=== PATIENT | male | born 1995 | race Caucasian/White ===

== ENCOUNTER 2017-04-19 12:41 | Emergency (ER) | payer OTHER ==
[~2017-04-19] VITALS: Ht 180.3 cm; Wt 87.3 kg
[2017-04-19 13:01] VITALS: Ht 180.3 cm; Wt 87.3 kg
[2017-04-19] MEDS ORDERED: ACETAMINOPHEN 325 MG TAB PO STA (13:28)
[2017-04-19 14:27] LABS: BASO % 0.1 %; BASO ABS # 0.01 K/uL (0-0.2); COMPLETE YES; EOS % 0.1 %; HEMATOCRIT 43.8 % (42-52); IG% 0.2 %; LYMPH % 4.2 %; LYMPH ABS # 0.57 K/uL (1.2-3.4); MEAN CELL VOLUME 88.1 fL (80-100); MEAN CORPUSCULAR HGB CONC 35.2 g/dl (32-36); MEAN PLATELET VOLUME 9.2 fL (7.4-10.4); MONO % 5.1 %; NEUT % 90.3 %; PLATELET COUNT 191 K/uL (130-400); RED BLOOD COUNT 4.97 M/uL (4.7-6.1); WHITE BLOOD COUNT 13.59 K/uL (4.8-10.8)
[2017-04-19 14:47] LABS: BUN/CREATININE RATIO 13.8 (10-20); CALCIUM 9.6 mg/dl (8.5-10.1); CREATININE 0.88 mg/dl (0.60-1.40); POTASSIUM 3.6 mmol/L (3.5-5.1)
[2017-04-19 15:19] LABS: LYME DISEASE AB IGG NEG (NEG); LYME DISEASE AB IGM NEG (NEG)
[2017-04-19 16:00] VITALS: BP 117/64; PULSE 86; TEMP 36.7; O2SAT 97
--- NOTE | 2017-04-19 18:58 | EMERGENCY ROOM VISIT NOTE ---
History Report prepared by Mecheibreg: Ren De Guzman Under the Supervision of: Dr. Jaycob Rubio M.D. First contact with patient: 13:07 Chief Complaint: ILLNESS Stated Complaint: SORE THROAT, FEVER History of Present Illness The patient is a 21 year old male who presents to the Emergency Room with complaints of persistent generalized illness beginning 12 hours ago. His symptoms include chills, subjective fevers, muscle aches, joint pain, sinus congestion, and sore throat. He believes that the muscle aches and joint pain are from playing basketball yesterday. He states he hasn't played in a long time. The patient denies any rashes or cough. He denies any known tick bites, and has not been in the [place] recently. Source of History: patient Onset: 12 hours ago Position: other (generalized) Quality: other (illness) Timing: other (persistent) Associated Symptoms: + fevers (subjective), + chills, + sorethroat, No cough , No rash Note: Additional symptoms: sinus congestion, body aches and joint pain. Review of Systems See HPI for pertinent positives & negatives. A total of 10 systems reviewed and were otherwise negative. Past Medical & Surgical Medical Problems: (1) Migraine (2) No Known Active Medical Problems Family History No pertinent family history stated. Social History Smoking Status: Never Smoker Occupation Status: [employer] student Current/Historical Medications No Active Prescriptions or Reported Meds Allergies Coded Allergies: No Known Allergies (Unverified , 04/19/17) Physical Exam Vital Signs Date Time Temp Pulse Resp B/P (MAP) Pulse Ox O2 Delivery O2 Flow Rate FiO2 04/19/17 16:00 36.7 86 91 117/64 97 04/19/17 14:58 36.7 86 91 117/64 97 Room Air 04/19/17 13:01 36.4 99 18 127/69 94 Room Air Physical Exam Constitutional: Vital signs reviewed. Eyes: Pupils are equal round reactive to light. Conjunctiva are noninjected. ENT: Pharynx with diffuse erythema without exudate. No cervical anterior lymphadenopathy. Mucous membranes are moist. Neck supple without meningeal signs. Respiratory: Clear to auscultation bilaterally. Breath sounds are equal bilaterally. Cardiovascular: Regular rate and rhythm. No rubs or gallops. GI: Soft, nondistended and nontender. Bowel sounds are present. No organomegaly. Musculoskeletal: No peripheral edema. No joint tenderness. Integumentary: No cyanosis. Neurological: The patient is awake and alert. No focal deficits. Psychiatric: Normal affect. Medical Decision & Procedures Laboratory Results 04/19/17 14:05 Red Blood Count 4.97, Mean Corpuscular Volume 88.1, Mean Corpuscular Hemoglobin 31.0, Mean Corpuscular Hemoglobin Concent 35.2, Mean Platelet Volume 9.2, Neutrophils (%) (Auto) 90.3, Lymphocytes (%) (Auto) 4.2, Monocytes (%) (Auto) 5.1, Eosinophils (%) (Auto) 0.1, Basophils (%) (Auto) 0.1, Neutrophils # (Auto) 12.28, Lymphocytes # (Auto) 0.57, Monocytes # (Auto) 0.69, Eosinophils # (Auto) 0.01, Basophils # (Auto) 0.01 04/19/17 14:05 Test 04/19/17 14:05 White Blood Count 13.59 K/uL (4.8-10.8) Red Blood Count 4.97 M/uL (4.7-6.1) Hemoglobin 15.4 g/dL (14.0-18.0) Hematocrit 43.8 % (42-52) Mean Corpuscular Volume 88.1 fL (80-100) Mean Corpuscular Hemoglobin 31.0 pg (25-34) Mean Corpuscular Hemoglobin Concent 35.2 g/dl (32-36) Platelet Count 191 K/uL (130-400) Mean Platelet Volume 9.2 fL (7.4-10.4) Neutrophils (%) (Auto) 90.3 % Lymphocytes (%) (Auto) 4.2 % Monocytes (%) (Auto) 5.1 % Eosinophils (%) (Auto) 0.1 % Basophils (%) (Auto) 0.1 % Neutrophils # (Auto) 12.28 K/uL (1.4-6.5) Lymphocytes # (Auto) 0.57 K/uL (1.2-3.4) Monocytes # (Auto) 0.69 K/uL (0.11-0.59) Eosinophils # (Auto) 0.01 K/uL (0-0.5) Basophils # (Auto) 0.01 K/uL (0-0.2) RDW Standard Deviation 39.1 fL (36.4-46.3) RDW Coefficient of Variation 12.2 % (11.5-14.5) Immature Granulocyte % (Auto) 0.2 % Immature Granulocyte # (Auto) 0.03 K/uL (0.00-0.02) Anion Gap 10.0 mmol/L (3-11) Est Creatinine Clear Calc Drug Dose 139.0 ml/min Estimated GFR () 140.3 Estimated GFR (Non- 121.1 BUN/Creatinine Ratio 13.8 (10-20) Calcium Level 9.6 mg/dl (8.5-10.1) Total Bilirubin 0.7 mg/dl (0.2-1) Direct Bilirubin 0.2 mg/dl (0-0.2) Aspartate Amino Transf (AST/SGOT) 20 U/L (15-37) Alanine Aminotransferase (ALT/SGPT) 57 U/L (12-78) Alkaline Phosphatase 57 U/L (45-117) Total Protein 7.7 gm/dl (6.4-8.2) Albumin 4.3 gm/dl (3.4-5.0) Lyme Disease IgG Antibody NEG (NEG) Lyme Disease IgM Antibody NEG (NEG) Monoscreen NEG (NEG) Laboratory results as reviewed by me. Medications Administered Medications (Trade) Dose Ordered Sig/Jessie Route Start Time Stop Time Status Last Admin Dose Admin Acetaminophen (Tylenol Tab) 650 mg NOW STAT PO 04/19/17 13:28 04/19/17 13:30 DC 04/19/17 13:40 650 MG ED Course 1308: The patient was evaluated in room B4B. A complete history and physical exam was performed. 1326: The patient's strep test was negative. I discussed getting additional laboratory studies with him and he verbalized agreement. 1328: Ordered Tylenol Tab 650 mg PO. 1523: Upon reevaluation, the patient appeared to have improvement of his symptoms. I discussed tonight's findings with him. He verbalized agreement of the treatment plan. The patient was discharged home. Medical Decision This is a 21-year-old male who presents with generalized illness. Differential diagnosis includes strep pharyngitis, URI, infectious mononucleosis, Lyme disease, influenza. I did perform a limited focused review of portions of the patient's old chart on the electronic medical record. The patient has had no recent pertinent visits to this hospital. I did evaluate the patient as noted above. The patient is presenting with a generalized illness for the past 12 hours. He does complain of a sore throat and body aches. I did obtain a rapid strep test which was negative. A throat culture is pending. IV access was established. I did treat the patient with Tylenol. I did order and review the patient's blood work as noted in the electronic medical record. His white blood cell count is slightly elevated which is a nonspecific finding. Lyme testing and Monospot are both negative. I did discuss the test results with the patient. I did recommend supportive care and follow up with [facility]. He was discharged in good condition. Medication Reconcilliation Current Medication List: was personally reviewed by me Blood Pressure Screening Patient's blood pressure: Normal blood pressure Blood pressure disposition: Did not require urgent referral Impression Primary Impression: Pharyngitis Scribe Attestation The scribe's documentation has been prepared under my direct and personally reviewed by me in its entirety. I confirm that the note above accurately reflects all work, treatment, procedures, and medical decision making performed by me. Departure Information Dispostion Home / Self-Care Prescriptions No Active Prescriptions or Reported Meds Referrals [facility] (PCP) Forms HOME CARE DOCUMENTATION FORM, IMPORTANT VISIT INFORMATION, WORK / SCHOOL INSTRUCTIONS Patient Instructions ED Pharyngitis Viral Report Pending, My [facility] Additional Instructions You have been examined and treated today on an emergency basis only. This is not a substitute for, or an effort to provide, complete comprehensive medical care. It is impossible to recognize and treat all injuries or illnesses in a single emergency department visit. It is therefore important that you follow up closely with [facility]. Call as soon as possible for an appointment. Return for worsening symptoms or if you develop rash, high fever, vomiting, or any other concerning symptoms. Problem Qualifiers Primary Impression: Pharyngitis Pharyngitis/tonsillitis etiology: unspecified etiology Qualified Codes: J02.9 - Acute pharyngitis, unspecified
== END 2017-04-19 15:45 | disposition home or self-care (01) ==
LOC: C.EDB 12:42
DX: J02.9 Acute pharyngitis, unspecified (principal)

== ENCOUNTER 2017-04-26 01:55 | Emergency (ER) | payer OTHER ==
[~2017-04-26] VITALS: Ht 182.9 cm; Wt 85.3 kg
[2017-04-26 02:04] VITALS: BP 124/94; PULSE 79; TEMP 36.5; Ht 182.9 cm; Wt 85.3 kg
[2017-04-26] MEDS ORDERED: BENZ1LOZ24 PO (02:23)
[2017-04-26] MEDS ORDERED: AZITHROMYCIN 250 MG TAB PO STA (02:40)
--- NOTE | 2017-04-26 02:41 | EMERGENCY ROOM VISIT NOTE ---
History Report prepared by Epifanio: Yohana Flaherty Under the Supervision of: Dr. Vinay Preciado M.D. First contact with patient: 02:07 Chief Complaint: COUGH Stated Complaint: COUGH AT NIGHT,ESPECIALLY AFTER 12AM History of Present Illness The patient is a 21 year old male who presents to the Emergency Room with complaints of persistent cough starting 4 days ago. During the day, he seldom coughs. His cough seems to worsen at night. He also has coughing when he lies down to take a nap during the day. He has been having diaphoresis with lying down. He was seen in the ED 1 week ago with a subjective fever, headache, and sore throat. He no longer has any fever or headache. He does have a sore throat. He denies any sick contacts. He is concerned for TB. He has gotten the vaccine. He does not have any know contacts with TB. Source of History: patient Onset: 4 days ago Position: other (global) Quality: other (cough) Timing: other (persistent) Modifying Factors (Worsening): other (lying down, nighttime) Associated Symptoms: + diaphoresis, + sorethroat, No fevers, No headache Review of Systems See HPI for pertinent positives & negatives. A total of 10 systems reviewed and were otherwise negative. Past Medical & Surgical Medical Problems: (1) Migraine (2) No Known Active Medical Problems Family History No pertinent family history stated. Social History Smoking Status: Never Smoker Occupation Status: [employer] student Current/Historical Medications Scheduled Azithromycin (Zithromax Z-Sher), 1 PKT PO UD Prednisone (Prednisone), 50 MG PO DAILY Scheduled PRN Benzocaine-Menthol (Mouth-Thro (Cepacol Sore Throat), 1 MICHAEL PO DIRECTED PRN for Cough Allergies Coded Allergies: No Known Allergies (Unverified , 04/26/17) Physical Exam Vital Signs Date Time Temp Pulse Resp B/P (MAP) Pulse Ox O2 Delivery O2 Flow Rate FiO2 04/26/17 02:52 98 04/26/17 02:04 36.5 79 18 124/94 97 Room Air Physical Exam GENERAL: Patient is well appearing and in no acute distress. Junky cough. HEENT: No acute trauma, normocephalic atraumatic, mucous membranes moist, no nasal congestion, no scleral icterus, mild pharyngeal erythema. NECK: No stridor, no adenopathy, no meningismus, trachea is midline. LUNGS: No dyspnea. Clear to auscultation and equal bilaterally. No wheeze, no rhonchi. HEART: Regular rate and rhythm. No murmurs, rubs, gallops appreciated. ABDOMEN: Soft, nontender, bowel sounds positive, no masses appreciated, no peritonitis. BACK: No midline tenderness, no CVA tenderness EXTREMITIES: Normal motion all extremities, no cyanosis, no edema. NEUROLOGIC: Alert and oriented, no acute motor or sensory deficits, no focal weakness, cranial nerves grossly intact. SKIN: No rash, no jaundice, no diaphoresis. Medical Decision & Procedures ER Provider Diagnostic Interpretation: X ray results are stated below per my interpretation: Chest: 2 view: No infiltrate, no effusion, no pneumothorax, no cavitary lesions. Medications Administered Medications (Trade) Dose Ordered Sig/Jessie Route Start Time Stop Time Status Last Admin Dose Admin Azithromycin (Zithromax Tab) 500 mg NOW STAT PO 04/26/17 02:40 04/26/17 02:41 DC 04/26/17 02:48 500 MG Prednisone (PredniSONE TAB) 60 mg NOW STAT PO 04/26/17 02:40 04/26/17 02:41 DC 04/26/17 02:48 60 MG ED Course 0210: The patient was evaluated in room A10. A complete history and physical exam was performed. 0238: I reevaluated the patient. I discussed results and discharge instructions : He verbalized understanding and agreement. The patient is ready for discharge. 0240: Prednisone 60 mg PO, Azithromycin 500 mg PO. Medical Decision 21 yr male arrives with complaint of persistent cough, sore throat over last week. Junky cough. CXR clear without evidence of TB by my read. Symptoms not consistent with PE. Will treat with abx/prednisone. Stressed S follow up. RTED if worsening or other concerns. Medication Reconcilliation Current Medication List: was personally reviewed by me Blood Pressure Screening Patient's blood pressure: Normal blood pressure Blood pressure disposition: Did not require urgent referral Impression Primary Impression: Acute bronchitis Scribe Attestation The scribe's documentation has been prepared under my direction and personally reviewed by me in its entirety. I confirm that the note above accurately reflects all work, treatment, procedures, and medical decision making performed by me. Departure Information Dispostion Home / Self-Care Prescriptions Prednisone (PREDNISONE) 50 Mg Tab 50 MG PO DAILY for 5 Days, #5 TAB Prov: Vinay Preciado M.D. 04/26/17 Azithromycin (ZITHROMAX Z-SHER) 250 Mg Tab 1 PKT PO UD, #1 PKT Prov: Vinay Preciado M.D. 04/26/17 Referrals No Doctor, Assigned (PCP) Patient Instructions Bronchitis Acute, My [facility]
[2017-04-26] MEDS ORDERED: PRED50TA PO (02:42)
[2017-04-26] MEDS ORDERED: AZITTAB PO (02:42)
[2017-04-26 02:52] VITALS: O2SAT 98
--- NOTE | 2017-04-26 07:09 | DIAGNOSTIC IMAGING REPORT ---
TWO VIEW CHEST CLINICAL HISTORY: Cough. FINDINGS: PA and lateral chest radiographs are obtained. No prior studies are available for comparison at the time of dictation. The cardiomediastinal silhouette is unremarkable. The lungs and pleural spaces are clear. There is no pneumothorax. The bony thorax appears intact. IMPRESSION: No active disease in the chest. Electronically signed by: Dino Haynes M.D. 04/26/2017 7:08 AM Dictated Date/Time: 04/26/2017 7:08 AM
== END 2017-04-26 02:53 | disposition home or self-care (01) ==
LOC: C.EDB 01:56 → C.EDA 02:53
DX: J20.9 Acute bronchitis, unspecified (principal)

== ENCOUNTER 2017-08-30 16:22 | Emergency (ER) | payer OTHER ==
[~2017-08-30] VITALS: Ht 185.4 cm; Wt 67.7 kg
[~2017-08-30 16:22] MED LIST: BENZ1LOZ24 PO
[2017-08-30 16:30] VITALS: Ht 185.4 cm; Wt 67.7 kg
[2017-08-30] MEDS ORDERED: KETOROLAC TROMETHAMINE 30 MG/ML VIAL IV STA (17:46)
[2017-08-30 18:17] VITALS: O2SAT 97
--- NOTE | 2017-08-30 18:28 | EMERGENCY ROOM VISIT NOTE ---
ED Visit Note First contact with patient: 17:31 CHIEF COMPLAINT: Flulike symptoms HISTORY OF PRESENTING ILLNESS: This is a 21-year-old male who presents to the emergency department with complaint of fevers, body aches and headaches, and a cough that started this morning. Patient states that his fever was up to 38.5 C. He states that he has been taking a Polish medicine for his cough, but did not take anything for fever. He has a friend who was recently treated for the flu. He states that his cough is dry and nonproductive. He denies any chest pain, shortness of breath, dizziness or syncope, back pain, abdominal pain, nausea or vomiting, diarrhea, constipation, bloody or black stools, urinary symptoms or rash. Patient does note that he was recently treated for chlamydia 2 weeks ago, took 1 g of azithromycin, and states that his symptoms have fully resolved from this. REVIEW OF SYSTEMS: A complete 10 point review of systems was reviewed with the patient with pertinent positives and negatives as per history of present illness. All else were negative. PAST MEDICAL HISTORY: No significant past medical or surgical history. SOCIAL HISTORY: Lives at home. [employer] student. Denies tobacco use or recreational drug use. Admits to occasional alcohol use. ALLERGIES: No known allergies PHYSICAL EXAM: CONSTITUTIONAL: Pleasant and cooperative. No acute distress. Mildly dehydrated , but otherwise well appearing and well nourished. HEENT: Normocephalic, atraumatic. Pupils equal, round and reactive to light, EOMI. TMs normal. Pharynx normal. Tacky mucous membranes. NECK: Supple, full active range of motion without discomfort. No nuchal rigidity or meningismus. No cervical adenopathy. RESPIRATORY: Clear to auscultation bilaterally with no wheezing, crackles, rhonchi or stridor. Equal expansion bilaterally. CARDIOVASCULAR: Regular rate and rhythm with no murmurs, rubs or gallops. Normal peripheral perfusion. No edema. GASTROINTESTINAL: Soft, nontender, nondistended. No palpable masses or HSM. Bowel sounds present in all quadrants. MUSCULOSKELETAL: Full range of motion of all joints without discomfort. INTEGUMENTARY: No rash or other significant dermatologic conditions noted. NEUROLOGIC: Alert and oriented X 4 with normal affect. Normal strength and sensation in all 4 extremities. No focal neurologic deficits noted. Normal speech. Normal gait observed. ED COURSE AND MEDICAL DECISION MAKING: CC: Patient presenting with complaint of flulike symptoms DIFFERENTIAL DIAGNOSIS: Includes, but not limited to viral URI, bronchitis, pneumonia, influenza, dehydration, among others. INTERPRETATION OF LABS: No leukocytosis, no anemia, mild hypokalemia, no other significant electrolyte abnormalities, normal renal function, normal liver enzymes. UA negative. POSITIVE influenza type A. IMAGING: Chest x-ray was reviewed by myself and radiologist and shows no acute abnormality by my interpretation. MEDICATION RECONCILIATION: I attest that I have personally reviewed the patient 's current medication list. INITIAL VITAL SIGNS REVIEW: I reviewed the patient's vital signs and interpret them as follows: T: Febrile; BP: Hypertensive; HR: Tachycardic; RR: Within normal limits; Pulse Ox: Within normal limits. Blood pressure screening: The patient was found to have an elevated blood pressure, which was felt to be situational. SUMMARY: Patient was evaluated at bedside, history and physical exam performed. Patient is alert and oriented, no acute distress, resting calming the stretcher. Patient feels hot to touch on exam, reassessed temp and noted to be febrile at 38.9, and also mildly tachycardic. He appears to be mildly dehydrated as well. Orders were placed at bedside for labs, UA, IV Toradol for fever and body aches , oral fluids for hydration, chest x-ray to evaluate for pneumonia. Patient discussed with Dr. Rubio, who agrees with my assessment and plan. Labs and imaging reviewed as above, positive for influenza type A. Chest x-ray unremarkable. Patient reassessed multiple times throughout ED stay, he is feeling improved and defervescing appropriately after Toradol and has been tolerating oral fluids well. Patient was updated on all results and plan for discharge, he was encouraged to follow-up with [facility] as needed and to contact them for advice regarding return to class. Patient was provided with a prescription for Tamiflu and given his first dose in the ED. Patient was also given strict return precautions should his symptoms worsen, he verbalized understanding. Patient was discharged home in stable condition and ambulatory. Problem List Medical Problems: (1) Migraine Status: Resolved Current/Historical Medications Scheduled Oseltamivir (Tamiflu), 75 MG PO BID Allergies Coded Allergies: No Known Allergies (Unverified , 04/26/17) Vital Signs Date Time Temp Pulse Resp B/P (MAP) Pulse Ox O2 Delivery O2 Flow Rate FiO2 08/30/17 20:43 37.2 100 18 122/71 100 Room Air 08/30/17 20:06 37.0 08/30/17 18:25 37.8 08/30/17 18:17 97 Room Air 08/30/17 16:30 37.0 101 20 150/89 97 Room Air Laboratory Results 08/30/17 18:48 Red Blood Count 5.07, Mean Corpuscular Volume 87.4, Mean Corpuscular Hemoglobin 31.0, Mean Corpuscular Hemoglobin Concent 35.4, Mean Platelet Volume 9.6, Neutrophils (%) (Auto) 84.9, Lymphocytes (%) (Auto) 6.8, Monocytes (%) (Auto) 7.5, Eosinophils (%) (Auto) 0.4, Basophils (%) (Auto) 0.2, Neutrophils # (Auto) 4.78, Lymphocytes # (Auto) 0.38, Monocytes # (Auto) 0.42, Eosinophils # (Auto) 0.02, Basophils # (Auto) 0.01 08/30/17 18:48 Test 08/30/17 18:20 08/30/17 18:48 Urine Color YELLOW Urine Appearance CLEAR (CLEAR) Urine pH 7.5 (4.5-7.5) Urine Specific [place] 1.016 (1.000-1.030) Urine Protein NEG (NEG) Urine Glucose (UA) NEG (NEG) Urine Ketones NEG (NEG) Urine Occult Blood TRACE (NEG) Urine Nitrite NEG (NEG) Urine Bilirubin NEG (NEG) Urine Urobilinogen NEG (NEG) Urine Leukocyte Esterase NEG (NEG) Urine WBC (Auto) 0 /hpf (0-5) Urine RBC (Auto) 0-4 /hpf (0-4) Urine Hyaline Casts (Auto) 0 /lpf (0-5) Urine Epithelial Cells (Auto) 0-5 /lpf (0-5) Urine Bacteria (Auto) NEG (NEG) Influenza Type A Antigen POS for Influ A (NEG) Influenza Type B Antigen Neg for Influ B (NEG) White Blood Count 5.62 K/uL (4.8-10.8) Red Blood Count 5.07 M/uL (4.7-6.1) Hemoglobin 15.7 g/dL (14.0-18.0) Hematocrit 44.3 % (42-52) Mean Corpuscular Volume 87.4 fL (80-100) Mean Corpuscular Hemoglobin 31.0 pg (25-34) Mean Corpuscular Hemoglobin Concent 35.4 g/dl (32-36) Platelet Count 180 K/uL (130-400) Mean Platelet Volume 9.6 fL (7.4-10.4) Neutrophils (%) (Auto) 84.9 % Lymphocytes (%) (Auto) 6.8 % Monocytes (%) (Auto) 7.5 % Eosinophils (%) (Auto) 0.4 % Basophils (%) (Auto) 0.2 % Neutrophils # (Auto) 4.78 K/uL (1.4-6.5) Lymphocytes # (Auto) 0.38 K/uL (1.2-3.4) Monocytes # (Auto) 0.42 K/uL (0.11-0.59) Eosinophils # (Auto) 0.02 K/uL (0-0.5) Basophils # (Auto) 0.01 K/uL (0-0.2) RDW Standard Deviation 39.3 fL (36.4-46.3) RDW Coefficient of Variation 12.4 % (11.5-14.5) Immature Granulocyte % (Auto) 0.2 % Immature Granulocyte # (Auto) 0.01 K/uL (0.00-0.02) Anion Gap 8.0 mmol/L (3-11) Est Creatinine Clear Calc Drug Dose 111.1 ml/min Estimated GFR () 123.9 Estimated GFR (Non- 106.9 BUN/Creatinine Ratio 10.0 (10-20) Calcium Level 9.0 mg/dl (8.5-10.1) Total Bilirubin 0.5 mg/dl (0.2-1) Direct Bilirubin 0.1 mg/dl (0-0.2) Aspartate Amino Transf (AST/SGOT) 22 U/L (15-37) Alanine Aminotransferase (ALT/SGPT) 47 U/L (12-78) Alkaline Phosphatase 60 U/L (45-117) Total Protein 7.9 gm/dl (6.4-8.2) Albumin 4.3 gm/dl (3.4-5.0) Medications Administered Medications (Trade) Dose Ordered Sig/Jessie Route Start Time Stop Time Status Last Admin Dose Admin Ketorolac Tromethamine (Toradol Inj) 15 mg NOW STAT IV 08/30/17 17:46 08/30/17 17:52 DC 08/30/17 18:51 15 MG Oseltamivir Phosphate (Tamiflu Cap) 75 mg NOW STAT PO 08/30/17 19:55 08/30/17 19:56 DC 08/30/17 19:55 75 MG Departure Information Impression Primary Impression: Influenza A Dispostion Home / Self-Care Condition GOOD Prescriptions Oseltamivir (Tamiflu) 75 Mg Cap 75 MG PO BID for 5 Days, #9 CAP Prov: Gricel JefferyMIRANDA Rodarte 08/30/17 Referrals [facility] (PCP) Patient Instructions ED Flu, My [facility] Additional Instructions You have been treated in the Emergency Department today for your fever. Test results today are POSITIVE for influenza type A. This is most likely the cause of your symptoms. Influenza is a type of virus that should run its course and symptoms should be improved after 7-10 days, but may last up to 14 days. You have been prescribed Tamiflu, which is a medication to help treat the symptoms of influenza. Take as prescribed for the full 5 days. For fevers and body aches/headaches, you may take the following over-the- counter medications: - Extra strength Tylenol (500 mg) 1-2 tablets every 6-8 hours as needed. Do not take more than 6 tablets (3000 mg) in 24 hours. - Ibuprofen (200 mg) 3 tablets every 6-8 hours as needed. Do not take more than 2400 mg in 24 hours. - For best results, you may alternate between the Tylenol and the ibuprofen every 3-4 hours for severe body aches and fevers. It is ESSENTIAL that you maintain adequate hydration with oral fluids! Some suggestions include: - Water is the IDEAL replacement for lost fluids. You should initially sip at the water to help facilitate increased intestinal absorption rate and to decrease the possibility of nausea/vomiting. - Carbohydrate/Electrolyte-Containing Drinks (i.e. Gatorade, Powerade, Pedialyte). All of these are good choices, but it is important to remember that all of these drinks contain a high concentration of sugar. - Popsicles, ice chips, and fruit juices are all other options. - My FAVORITE dehydration remedy is to mix a 1:1 solution of bottled Gatorade with bottled water. This dilution allows for a palatable flavor with added benefit of a reduction in the amount of sugar consumption. As with all Emergency Department visits, you should follow-up with your Primary Care Provider or [facility] in 2-3 days for reevaluation. You should also call the [facility] for guidance regarding return to class. Please return to the emergency department for any worsening symptoms, including difficulty breathing, chest pain, coughing up blood, severe dizziness or passing out, confusion, severe headache, or any other concerns. School Instructions Return To School: 2 days
[2017-08-30 18:56] LABS: BASO % 0.2 %; BASO ABS # 0.01 K/uL (0-0.2); EOS % 0.4 %; EOS ABS # 0.02 K/uL (0-0.5); HEMATOCRIT 44.3 % (42-52); HEMOGLOBIN 15.7 g/dL (14.0-18.0); IG# 0.01 K/uL (0.00-0.02); LYMPH % 6.8 %; LYMPH ABS # 0.38 K/uL (1.2-3.4); MEAN CELL VOLUME 87.4 fL (80-100); MEAN CORPUSCULAR HGB CONC 35.4 g/dl (32-36); MEAN PLATELET VOLUME 9.6 fL (7.4-10.4); MONO % 7.5 %; MONO ABS # 0.42 K/uL (0.11-0.59); NEUT % 84.9 %; NEUT ABS # 4.78 K/uL (1.4-6.5); PLATELET COUNT 180 K/uL (130-400); RED CELL DISTRIBUTION WIDTH CV 12.4 % (11.5-14.5); RED CELL DISTRIBUTION WIDTH SD 39.3 fL (36.4-46.3); WHITE BLOOD COUNT 5.62 K/uL (4.8-10.8)
[2017-08-30 19:13] LABS: ALBUMIN 4.3 gm/dl (3.4-5.0); CREATININE 0.99 mg/dl (0.60-1.40); POTASSIUM 3.2 mmol/L (3.5-5.1)
--- NOTE | 2017-08-30 19:13 | DIAGNOSTIC IMAGING REPORT ---
CHEST 2 VIEWS ROUTINE HISTORY: 21 years-old Male Evaluate Fever/Sepsis acute fever and sepsis COMPARISON: Chest radiograph 04/26/2017 TECHNIQUE: PA and lateral views of the chest FINDINGS: Cardiomediastinal and hilar silhouettes are within normal limits. No pneumothorax, pleural effusion, focal airspace consolidation or overt pulmonary edema. Bones of the chest appear grossly intact. IMPRESSION: No acute process. The above report was generated using voice recognition software. It may contain grammatical, syntax or spelling errors. Electronically signed by: Braydon Beyer M.D. 08/30/2017 7:12 PM Dictated Date/Time: 08/30/2017 7:10 PM
[2017-08-30 19:15] LABS: TOTAL PROTEIN 7.9 gm/dl (6.4-8.2)
[2017-08-30 19:24] LABS: INFLUENZA B ANTIGEN Neg for Influ B (NEG)
[2017-08-30] MEDS ORDERED: OSELTAMIVIR PHOSPHATE 75 MG CAP PO STA (19:55)
[2017-08-30] MEDS ORDERED: OSEL75CA12 PO (20:32)
[2017-08-30 20:43] VITALS: BP 122/71; PULSE 100; TEMP 37.2; O2SAT 100
== END 2017-08-30 21:04 | disposition home or self-care (01) ==
LOC: C.EDB 16:24 → C.EDC 21:04
DX: J10.1 Influenza due to other identified influenza virus with other respiratory manifestations (principal)